=== PATIENT | male | born 1990 | race Caucasian/White ===

== ENCOUNTER 2024-12-12 06:05 | Day surgery (SDC) | payer BC, SELFPAY ==
[2024-12-12 07:02] VITALS: BMI 25.7
[2024-12-12] MEDS: LACTATED RINGERS 1000ML 1,000 ML 50 ML IV (07:05)
[2024-12-12 07:06] VITALS: BP 120/74; PULSE 55; RESP 18; TEMP 36.3; O2SAT 97
--- NOTE | 2024-12-12 07:49 | EXP.HP ---
History of Present Illness *Admission Date: 12/12/24 *Reason for visit:: Dysphagia *History of present illness: Mr. Valencia is a 33-year-old gentleman who is here for diagnostic/therapeutic upper endoscopy secondary to dysphagia and food impaction. The examination is deemed medically necessary for EGD. The patient has been seen, interviewed and examined prior to the procedure by both myself and the anesthesia provider. [facility] Disclaimer: The information contained in this section may have been updated after the patient was seen, as this information can be updated by other users. Medical History (Updated 12/12/24 @ 07:51 by Mau Junior II, MD) Food impaction of esophagus GERD (gastroesophageal reflux disease) Surgical History History of back surgery History of nasal surgery Hx of esophagogastroduodenoscopy Family History Other No significant family history Social History Smoking Status: Never smoker alcohol intake: current current occupational status: employed Travel in the last 8 weeks?: Inside the [place] Review of Systems Review of Systems Review of systems (narrative): Negative *Cardiovascular Comments: Negative *Gastrointestinal Comments: Negative *Genitourinary Comments: Negative *Musculoskeletal Comments: Negative *Neurologic Comments: Negative Meds Home Medications and Allergies Home Medications ?Medication ?Instructions ?Recorded ?Confirmed ?Type omeprazole 10 mg capsule,delayed 10 mg PO DAILY 12/11/24 12/12/24 History release New Prescriptions to Start Prescriptions: Allergies Allergy/AdvReac Type Severity Reaction Status Date / Time No Known Allergies Allergy Verified 12/12/24 07:06 Exam Data for Last 24 hours Vital signs and Labs for Last 24 Hours: Temp Pulse Resp BP Pulse Ox O2 Del Method 97.3 F L 55 L 18 120/74 97 Room Air 12/12/24 07:06 12/12/24 07:06 12/12/24 07:06 12/12/24 07:06 12/12/24 07:06 12/12/24 07:06 I & O for Last 24 hours: Intake & Output 12/09/24 12/10/24 12/11/24 12/12/24 23:59 23:59 23:59 23:59 Weight 190 lb *Routine HEENT Exam Head: Present normocephalic Eye: Present EOMI and PERRL ENT: Present mucous membranes moist *Routine Neck Exam Neck: Present supple *Routine Respiratory Exam Respiratory: Present CTA bilaterally *Routine Cardiovascular Exam Cardiovascular: Present RRR *Routine Abdominal Exam Abdominal: Present soft and normoactive bowel sounds; Absent tenderness *Routine Rectal Exam Rectal:: deferred *Routine Genitalia Exam Genitalia:: deferred *Routine Extremities Exam Extremities: Absent cyanosis, clubbing or edema *Routine Skin Exam Skin: Present warm; Absent rash *Routine Neurological Exam Neurological: Present alert and oriented X3 Assessment and Plan *Assessment and plan (1) Dysphagia: Status: Acute Category: Medical Code(s): R13.10 - Dysphagia, unspecified Plan A/P: 1. Dysphagia with prior food impaction is the preprocedural diagnosis. The patient will be anesthetized/sedated using MAC sedation. The patient has been seen and examined. Cardiac and lung assessment prior to the examination is stable. Proceed with planned diagnostic/therapeutic EGD.
--- NOTE | 2024-12-12 07:51 | P.PCN_ITS ---
[facility] Procedure Note Date: 12/12/24 Time: 08:15 Procedure Note:: Upper Endoscopy Procedure Report: Esophagogastroduodenoscopy with cold biopsies and TTS balloon dilation Endoscopost: Mau Junior II, MD Referring Physician: Rigoberto Flores MD [address] [place] [address] Date of Procedure: December 12, 2024 Equipment: Olympus GIF 190 standard upper endoscope Sedation: MAC sedation Indications: Mr. Valencia is a 33-year-old gentleman who is here for diagnostic/therapeutic upper endoscopy secondary to dysphagia. The patient did have a EGD with dilation 4 years ago and had clinical improvement of swallowing. Over the last couple of years he has had recurrence of dysphagia especially with solids such as breads and large solid food boluses. He does have a history of seasonal allergies. He reports minimal heartburn. He has had no unintentional weight loss. He does have a family history of Hernandez's esophagus (father and maternal grandfather). Procedure: Prior to the procedure, a history and physical exam was performed, and patient's medications and allergies were reviewed. The risks, benefits and alternatives of the sedation and procedure were discussed with the patient. All questions were answered and informed consent was obtained. The patient was brought to the procedure room. Patient identification and proposed procedure were verified by the physician and the nurse. The patient was placed in a left lateral decubitus position and the scope was passed under direct vision. Throughout the procedure, the patient's blood pressure, pulse, and oxygen saturations were monitored continuously. The upper GI endoscopy was accomplished without diffi culty. The patient tolerated the procedure well. Findings: The scope was passed directly into the upper esophagus and advanced to the third portion of the duodenum. The post bulbar duodenum and duodenal bulb were normal with normal mucosa and conniventes. The scope was withdrawn through a normal duodenal bulb and pylorus into the stomach. There was some linear reactive gastropathy of the antrum. Cold biopsies were taken from the antrum. The body and fundus of the stomach were normal. Upon retroflexion there was no hiatal hernia. The scope was then withdrawn into the esophagus. There was no evidence of reflux esophagitis. There was a serrated Z-line. Cold biopsies were taken at the GE junction. There was a distal esophageal fibrotic ring. There was no evidence of corrugation or furrowing. Cold biopsies were taken from the distal and proximal esophagus to rule out eosinophilic esophagitis. There is no proximal esophageal inlet patch. The entire esophagus was dilated to 60 Azeri/20 mm with a TTS hydrostatic balloon with shattering of the fibrotic ring. The fibrotic ring diameter was approximately 13 to 14 mm initially. The remainder of the esophageal mucosa was normal. Impression: 1. Distal esophageal fibrotic ring status post dilation to 20 mm (from 13 to 14 mm diameter) 2. Mild linear antral gastropathy Plan: I will follow-up the biopsies to rule out eosinophilic esophagitis but there was no clear endoscopic evidence of EOE. I will send RA[facility] food allergy testing today. I would recommend short-term omeprazole therapy x 3 months. I will discuss the findings with the patient and family.
[2024-12-12 08:23] VITALS: BP 129/72; PULSE 70; RESP 16; TEMP 36.3; O2SAT 93
[2024-12-12 08:33] VITALS: BP 125/69; PULSE 68; RESP 18; O2SAT 97
--- NOTE | 2024-12-12 08:37 | EXP.ANES.CKL ---
[facility] Disclaimer: The information contained in this section may have been updated after the patient was seen, as this information can be updated by other users. Medical History (Updated 12/12/24 @ 08:20 by Mau Junior II, MD) Food impaction of esophagus GERD (gastroesophageal reflux disease) Surgical History History of back surgery History of nasal surgery Hx of esophagogastroduodenoscopy Family History Other No significant family history Social History (Updated 12/12/24 @ 07:51 by Mau Junior II, MD) Smoking Status: Never smoker alcohol intake: current substance use type: denies use current occupational status: employed Travel in the last 8 weeks?: Inside the [place] [facility] Anesthesia Checklist Patient Identification Patient Identification: Verbal (Name & ) Structural Data Admitted From: Home Planned Operative Procedure/s: egd Airway Assessment Mallampati Score:: Class II C-Spine Mobility Assessed: Yes TMJ Mobility Assessed: Yes Dentition: Good Dentition Neurological Assessment Level of Consciousness: Awake, Alert and Appropriate Anesthesia Plan Anesthesia Risk discussed: Yes Anesthesia Plan: Verified ASA Class: I Anesthesia Type: MAC
[2024-12-12 08:43] VITALS: BP 119/69; PULSE 68; RESP 18; O2SAT 96
[2024-12-12 08:53] VITALS: BP 116/71; PULSE 61; RESP 18; O2SAT 96
[2024-12-12 09:13] VITALS: BP 113/72; PULSE 64; RESP 18; TEMP 36.3; O2SAT 96
[2024-12-17 20:44] LABS: F001-IgE Egg White <0.10 kU/L (Class 0); F002-IgE Milk <0.10 kU/L (Class 0); F003-IgE Codfish <0.10 kU/L (Class 0); F004-IgE Wheat 0.22 kU/L (Class 0/I); F010-IgE Sesame Seed 0.28 kU/L (Class 0/I); F013-IgE Peanut 0.16 kU/L (Class 0/I); F014-IgE Soybean <0.10 kU/L (Class 0); F024-IgE Shrimp <0.10 kU/L (Class 0); F256-IgE Walnut 0.19 kU/L (Class 0/I); F338-IgE Scallop <0.10 kU/L (Class 0)
== END 2024-12-12 09:13 | disposition home or self-care (01) ==
PROVIDERS: Visit Provider Internal Medicine Gastroenterology
PROC: 0DJ08ZZ Inspection of Upper Intestinal Tract, Via Natural or Artificial Opening Endoscopic (ICD-10-PCS; CPT 43239; principal; 2024-12-12 07:30)
DX: K22.2 Esophageal obstruction (principal); K31.9 Disease of stomach and duodenum, unspecified; K25.9 Gastric ulcer, unspecified as acute or chronic, without hemorrhage or perforation; K21.00 Gastro-esophageal reflux disease with esophagitis, without bleeding
CPT/HCPCS: 43239; 43249; 36415; 86003; 86008; C1726; J2003; J2704; J7120